=== PATIENT | male | born 1990 | race Caucasian/White ===

== ENCOUNTER 2019-02-13 12:38 | Emergency (ER) | payer OTHER ==
[~2019-02-13] VITALS: Ht 177.8 cm; Wt 84.8 kg
[~2019-02-13 12:38] MED LIST: AMOXICILLIN; IBUPROFEN
[2019-02-13] MEDS ORDERED: IBUPROFEN 600 MG TAB PO NR (13:00)
[2019-02-13] MEDS ORDERED: CEFTRIAXONE SOD 1 GM VIAL IV ONE (13:00)
[2019-02-13] MEDS ORDERED: TETRACAINE HCL 0.5% OPTH SOLN 4 ML BTL OP ONE (13:00)
[2019-02-13] MEDS ORDERED: CEFTRIAXONE SOD 1 GM/NS 50 ML 50 ML IV ONE (13:15)
[2019-02-13] MEDS ORDERED: HYDROCODONE/APAP 10MG-325MG TAB PO NR (14:00)
[2019-02-13 14:38] VITALS: BP 121/82
== END 2019-02-13 14:47 | disposition home or self-care (01) ==
LOC: ER 12:38
DX: H60.91 Unspecified otitis externa, right ear (principal); R50.9 Fever, unspecified; J02.0 Streptococcal pharyngitis
CPT/HCPCS: 99283